=== PATIENT | female | born 1940 | race Caucasian/White ===

== ENCOUNTER 2021-01-03 09:01 | Outpatient (CLI) | payer MEDICARE ==
[2021-01-03 13:11] LABS: Hemoglobin 14.3 g/dL (12.0-15.5); Mean Corpuscular Hemoglobin 28.9 pg (27.0-33.0); Mean Corpuscular Volume 89.3 fl (81.6-98.3); Red Blood Cell (RBC) Count 4.95 10x6/uL (3.90-5.03); White Blood Cell (WBC) Count 7.3 10x3/uL (3.5-10.5)
[2021-01-03 13:12] LABS: Mean Corpuscular HGB CONC 32.4 g/dL (32.0-36.0); Mean Platelet Volume 10.8 fl (7.4-10.4); Platelet Count 287 10x3/uL (150-450)
[2021-01-03 13:39] LABS: Anion Gap 12 mmol/L (10-20); BUN (Urea Nitrogen) 27 mg/dL (9.8-20.1); Calc. Creatinine Clearance 0 mL/min (70-130); Calcium 9.1 mg/dL (7.8-10.44); Carbon Dioxide 27 mmol/L (23-31); Chloride 105 mmol/L (98-107); Glucose 68 mg/dL (83-110); Potassium 4.8 mmol/L (3.5-5.1); Sodium 139 mmol/L (136-145)
[2021-01-04 11:56] LABS: SARS-CoV-2 PCR by NAA Not Detected (NotDetected)
== END 2021-01-03 09:02 | disposition home or self-care (01) ==
LOC: CSHLAB 09:01
PROVIDERS: ATTEND Otolaryngology Plastic Surgery within the Head & Neck
DX: Z01.818 Encounter for other preprocedural examination (principal); Z20.822 Contact with and (suspected) exposure to COVID-19
CPT/HCPCS: 80048; 85027; 93005; 93010; U0003; U0005

== ENCOUNTER 2021-01-08 10:55 | Day surgery (SDC) | payer MEDICARE ==
[2021-01-05 13:23] VITALS: BMI 29.7
[~2021-01-08 10:55] MED LIST: Lidocaine 4% Topical Sol 50 ML BOT ONE; Oxymetazoline HCl 0.05% ( 15 ML ) ONE
[2021-01-08] MEDS ORDERED: Lidocaine 1% MPF 2 ML VIAL ONE (12:23)
[2021-01-08] MEDS ORDERED: PROPOFOL 60 ML ONE (13:52)
[2021-01-08] MEDS ORDERED: Fentanyl 100 MCG/2 ML VIAL ONE (13:52)
[2021-01-08] MEDS ORDERED: Ondansetron PF 4 MG/2 ML Vial ONE (13:52)
[2021-01-08] MEDS ORDERED: Dexamethasone 20 MG/5 ML VIAL ONE (13:52)
[2021-01-08] MEDS ORDERED: Midazolam HCl 2 mg/2 ml Vial ONE (13:52)
[2021-01-08] MEDS ORDERED: Lidocaine 1% PF 5 ML VIAL ONE (13:53)
== END 2021-01-08 15:50 | disposition home or self-care (01) ==
LOC: CSHSDC 10:55
PROVIDERS: ATTEND Otolaryngology Plastic Surgery within the Head & Neck
PROC: 3E0F8GC Introduction of Other Therapeutic Substance into Respiratory Tract, Via Natural or Artificial Opening Endoscopic (ICD-10-PCS; principal; 2021-01-08)
DX: R49.0 Dysphonia (principal); J38.00 Paralysis of vocal cords and larynx, unspecified; Z79.899 Other long term (current) drug therapy; Z79.82 Long term (current) use of aspirin
CPT/HCPCS: 31571; C1776; J1100; J2250; J2405; J2704; J3010

== ENCOUNTER 2022-04-03 10:35 | Outpatient (CLI) | payer MEDICARE | END 2022-04-03 10:36 | disposition home or self-care (01) | LOC: CSHCT 10:35 | PROVIDERS: ATTEND Otolaryngology Plastic Surgery within the Head & Neck | DX: H72.92 Unspecified perforation of tympanic membrane, left ear (principal); H71.92 Unspecified cholesteatoma, left ear; H70.92 Unspecified mastoiditis, left ear | CPT/HCPCS: 70480 ==